=== PATIENT | male | born 1970 | race Caucasian/White ===

== ENCOUNTER → 2017-02-18 | Outpatient (REF) ==
[~2017-02-18] MED LIST: NO HOME MEDICATIONS
== END ==
LOC: WSOH 12:11
DX: Z02.89 Encounter for other administrative examinations (principal)

== ENCOUNTER 2019-12-01 21:13 | Emergency (ER) | payer OTHER ==
[~2019-12-01] VITALS: Ht 180.3 cm; Wt 77.3 kg
[2019-12-01] MEDS ORDERED: AMOXICILLIN 8751 TAB PO (21:56)
[2019-12-01 22:11] VITALS: BP 150/71; PULSE 61
== END 2019-12-01 22:12 | disposition home or self-care (01) ==
LOC: COL.ER 21:13
DX: S60.552A Superficial foreign body of left hand, initial encounter (principal); X58.XXXA Exposure to other specified factors, initial encounter